=== PATIENT | male | born 1995 | race Two or more races ===

== ENCOUNTER 2022-04-17 06:46 | Emergency (ER) | payer BC, OTHER ==
[2022-04-17] MEDS ORDERED: Oxymetazoline 0.05% Nasal Spray 30 ML Bottle NAS STA (07:08)
[2022-04-17] MEDS ORDERED: Lidocaine 2% Jelly 30 ML Tube MUCMEM STA (07:08)
[2022-04-17] MEDS ORDERED: Lidocaine 2% Viscous Solution 15 ML UD ONE (07:12)
[2022-04-17] MEDS ORDERED: Lidocaine 2% Viscous Solution 15 ML UD PO STA (07:20)
== END 2022-04-17 08:41 | disposition home or self-care (01) ==
LOC: MW.ED 06:46
DX: R04.0 Epistaxis (principal)
CPT/HCPCS: 30903; 99283; A9270; 30901